=== PATIENT | male | born 1970 | race Asian ===

== ENCOUNTER 2021-01-25 16:33 | Emergency (ER) | payer OTHER ==
[~2021-01-25] VITALS: Ht 182.9 cm; Wt 83.9 kg
[2021-01-25 17:29] LABS: PLATELET COUNT 456 K/uL (142-355)
[2021-01-25 17:36] LABS: POTASSIUM 3.4 mmol/L (3.6-5.2)
[2021-01-25 20:00] VITALS: TEMP 99.6
[2021-01-25 21:32] VITALS: BP 146/93
== END 2021-01-25 21:34 | disposition short-term general hospital (02) ==
LOC: ED 16:33
PROVIDERS: Emergency Medicine
DX: K50.00 Crohn's disease of small intestine without complications (principal); Z98.890 Other specified postprocedural states; Z11.52 Encounter for screening for COVID-19
CPT/HCPCS: 36415; 80053; 80307; 80320; 81000; 82150; 83690; 85027; 87635; 96365; 96375; 96376; 99284; J1170; J2175; J2405; J2543; Q9963; U0003